=== PATIENT | male | born 1975 | race Caucasian/White ===

== ENCOUNTER → 2021-11-21 07:09 | Outpatient (CLI) | payer OTHER, SELFPAY ==
--- NOTE | ~2021-11-21 | MR_ITS ---
EXAMINATION: MR knee RT wo con DATE: 11/21/2021 07:44 INDICATION: Chronic right knee pain TECHNIQUE: Magnetic resonance imaging (MRI) of the right knee was performed without intravenous contr ast. Sequences included coronal PD-weighted FSE, coronal PD-weighted FS FSE, sagittal T2-weighted FS E, sagittal PD-weighted FS FSE and axial PD weighted fat saturated FSE. COMPARISON: None. FINDINGS: Medial compartment: Medial meniscus is normal. Articular cartilage is normal. Lateral compartment: Lateral meniscus is normal. Chondral surface regularity at the central aspect of the lateral tibial p lateau with deep fissuring without degenerative subchondral changes at the posterior aspect. Lateral tibial plateau. Patellofemoral compartment: Cartilage thickness is relatively preserved with deep chondral fissuring at the caudal half of the la teral patellar facet and caudal half of the trochlear groove, both without degenerative subchondral c hanges. Ligaments and tendons: Anterior and posterior cruciate ligaments are normal. The medial collateral ligament and fibular jocelyn ateral ligament complex are normal. Small enthesophyte and mild tendinopathy at the distal quadriceps tendon. Mild patellar tendinopathy. There is fluid and synovitis within a large deep infrapatellar b ursa which measures 4.1 cm medial to lateral, 3.3 cm craniocaudal and 1.6 similar anteroposteriorly. Additional fluid and synovitis within an intrasubstance ganglion cyst at the central aspect of the di stal patellar tendon which measures 1.8 cm craniocaudally and 8 x 4 mm in maximal orthogonal dimensio ns which appears to communicate with the underlying bursa. The visualized medial and lateral hamstrin g tendons as well as the iliotibial band are normal. Fluid: Small right knee joint effusion. No loose osteochondral bodies identified. Osseous/other: Normal marrow signal. No fracture or pathologic marrow replacing process. IMPRESSION: 1. Prominent deep infrapatellar bursitis. Mild tendinopathy in the overlying patellar tendon with int rasubstance ganglion cyst appearing to arise from the underlying bursa and extending into a split tea r in the distal patellar tendon. 2. 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 3. Small right knee joint effusion. Reviewed, dictated and finalized at location A. IMPRESSION: 1. Prominent deep infrapatellar bursitis. Mild tendinopathy in the overlying pa tellar tendon with intrasubstance ganglion cyst appearing to arise from the und erlying bursa and extending into a split tear in the distal patellar tendon. 2. Mild lateral and patellofemoral osteoarthritis with regions of moderate grad e chondromalacia along the lateral tibial plateau, lateral patellar facet and a t the trochlear groove. 3. Small right knee joint effusion.
== END ==
PROVIDERS: PCP Family Medicine; Visit Provider Orthopaedic Surgery
DX: M25.561 Pain in right knee (principal); G89.29 Other chronic pain; M71.561 Other bursitis, not elsewhere classified, right knee; M76.51 Patellar tendinitis, right knee; M17.11 Unilateral primary osteoarthritis, right knee; M94.261 Chondromalacia, right knee; M25.461 Effusion, right knee
CPT/HCPCS: 73721